=== PATIENT | female | born 1955 | race Caucasian/White ===

== ENCOUNTER 2018-02-18 10:23 | Day surgery (SDC) | payer OTHER ==
[2018-02-18 11:40] LABS: ADD MAN DIFF? NO
[2018-02-18 11:57] LABS: BASOPHILS % 0.2 % (0.0-2.0); EOSINOPHILS % 0.3 % (0.0-7.0); HEMATOCRIT 37.5 % (37.0-47.0); HEMOGLOBIN 12.8 g/dl (12.0-16.0); LYMPHOCYTES # 1.2 10^3/ul (0.8-2.9); LYMPHOCYTES % 19.3 % (15.0-51.0); MEAN CORPUSCULAR HEMOGLOBIN 29.4 pg (29.0-33.0); MEAN CORPUSCULAR HGB CONC 34.1 g/dl (32.0-37.0); MEAN PLATELET VOLUME 10.3 fl (7.4-10.4); MONOCYTE # 0.4 10^3/ul (0.3-0.9); MONOCYTES % 7.1 % (0.0-11.0); NEUTROPHIL # 4.5 10^3/ul (1.6-7.5); NEUTROPHILS % 72.6 % (39.0-77.0); PLATELET COUNT 247 10^3/UL (140-415); RED BLOOD COUNT 4.36 10^6/ul (4.20-5.40); RED CELL DISTRIBUTION WIDTH 12.8 % (11.5-14.5)
[2018-02-18 11:57] LABS: WHITE BLOOD COUNT 6.2 10^3/ul (4.8-10.8)
[2018-02-18 12:09] LABS: INR 1.06; PROTIME 13.9 Sec (11.9-14.9); PT RATIO 1.1
[2018-02-18 12:10] LABS: PARTIAL THROMBOPLASTIN TIME 30.7 Sec (25.0-35.0)
[2018-02-18 12:11] LABS: ALANINE AMINOTRANSFERASE 45 IU/L (13-69); ALBUMIN 4.8 g/dl (3.3-4.9); ALBUMIN/GLOBULIN RATIO 1.45; ALKALINE PHOSPHATASE 122 IU/L (42-121); ANION GAP 19 (8-16); ASPARTATE AMINO TRANSFERASE 27 IU/L (15-46); CARBON DIOXIDE 22 mmol/L (21-31); CHLORIDE 107 mmol/L (97-110); GLUCOSE 123 mg/dl (70-220); TOTAL PROTEIN 8.1 g/dl (6.1-8.1)
[2018-02-18 12:21] LABS: BLOOD UREA NITROGEN 17 mg/dl (7-20); CREATININE 0.76 mg/dl (0.44-1.00); SODIUM 144 mmol/L (135-144)
[2018-02-18] MEDS ORDERED: MIDAZOLAM 1 MG/ML 2 ML INJ (13:45)
[2018-02-18] MEDS ORDERED: ONDANSETRON 4 MG INJ ×2 (13:45→15:12)
[2018-02-18] MEDS ORDERED: PROPOFOL 20 ML (13:45)
[2018-02-18] MEDS ORDERED: ROCURONIUM 50 MG INJ (13:45)
[2018-02-18] MEDS ORDERED: LIDOCAINE 1% (MDV) 20 ML INJ (13:45)
[2018-02-18] MEDS ORDERED: CEFAZOLIN 1 GM INJ (13:45)
[2018-02-18] MEDS ORDERED: DEXAMETHASONE 4 MG/ML 1 ML INJ ×2 (13:45→14:30)
[2018-02-18] MEDS ORDERED: POLYMYXIN/BACITRACIN 1L IRRIG (14:01)
[2018-02-18] MEDS: POLYMYXIN/BACITRACIN 1L IRRIG (14:16)
[2018-02-18] MEDS ORDERED: ROPIVACAINE 0.5 % 30 ML VIAL (14:30)
[2018-02-18] MEDS ORDERED: HYDROmorphONE (0.2 MG/ML) 10ML SYG IV ×3 (15:12→15:30)
[2018-02-18] MEDS: HYDROmorphONE (0.2 MG/ML) 10ML SYG IV (15:14)
[2018-02-18] MEDS: ONDANSETRON 4 MG INJ IV (15:14)
[2018-02-18] MEDS ORDERED: SUGAMMADEX SODIUM 200 MG/2 ML VIAL IV (15:14)
[2018-02-18] MEDS ORDERED: LABETALOL HCL 20MG INJ IV (15:30)
[2018-02-18] MEDS ORDERED: OXYCODONE/ACETAMINOPHEN (5/325) TAB PO ×2 (15:30)
== END 2018-02-18 16:25 | disposition home or self-care (01) ==
LOC: SUR 10:23 → SDS 10:23 → SUR 16:25
DX: S82.841A Displaced bimalleolar fracture of right lower leg, initial encounter for closed fracture (principal); X58.XXXA Exposure to other specified factors, initial encounter; I10 Essential (primary) hypertension
CPT/HCPCS: 27814; 73600; 80053; 85025; 85610; 85730